=== PATIENT | male | born 2005 | race Two or more races ===

== ENCOUNTER 2025-06-17 03:56 | Emergency (ER) | payer MEDICAID, OTHER ==
[~2025-06-17] VITALS: Ht 188 cm; Wt 88.2 kg
[2025-06-17 03:58] VITALS: BP 132/83; PULSE 81; RESP 14; TEMP 97.8; O2SAT 97
== END 2025-06-17 05:19 | disposition left against medical advice (07) ==
LOC: ER 04:03
DX: M79.642 Pain in left hand (principal); R20.0 Anesthesia of skin; Z53.21 Procedure and treatment not carried out due to patient leaving prior to being seen by health care provider